=== PATIENT | male | born 1985 | race Asian ===

== ENCOUNTER 2016-08-20 11:17 | Emergency (ER) | payer MEDICAID, OTHER ==
[~2016-08-20] VITALS: Ht 188 cm; Wt 104.3 kg
--- NOTE | 2016-08-20 11:26 | NUR ---
PT TO BED 5 AT THIS TIME,
[2016-08-20 11:27] VITALS: BP 149/81
--- NOTE | 2016-08-20 11:28 | NUR ---
30M BIB SELF C/O THROAT PAIN W/ COUGH X 2 DAYS.PT DENIES N/V/D;SKIN IS PINK/WARM/DRY; AAOX4 WITH EVEN AND STEADY GAIT; LUNGS CLEAR BL; HR EVEN AND REGULAR; PT DENIES ANY FEVER, CP, SOB AT THIS TIME; PATIENT STATES PAIN OF 5/10 AT THIS TIME; VSS; PATIENT POSITIONED FOR COMFORT; HOB ELEVATED; BEDRAILS UP X2; BED DOWN. ER MD MADE AWARE OF PT STATUS.
--- NOTE | 2016-08-20 11:40 | NUR ---
DR ALVAREZ EVALUATING PT AT BEDSIDE
[2016-08-20 12:02] VITALS: BP 129/76
--- NOTE | 2016-08-20 12:02 | NUR ---
Patient discharged with v/s stable. Written and verbal after care instructions given and explained. Patient alert, oriented and verbalized understanding of instructions. Ambulatory with steady gait. All questions addressed prior to discharge. ID band removed. Patient advised to follow up with PMD. Rx of ZITHROMAX & DEXTROMETHORPHAN given. Patient educated on indication of medication including possible reaction and side effects. Opportunity to ask questions provided and answered.
== END 2016-08-20 12:02 | disposition home or self-care (01) ==
LOC: MED 11:17
DX: J06.9 Acute upper respiratory infection, unspecified (principal); J02.9 Acute pharyngitis, unspecified; F17.200 Nicotine dependence, unspecified, uncomplicated; Z71.6 Tobacco abuse counseling